=== PATIENT | female | born 1945 | race African-American/Black ===

== ENCOUNTER 2022-08-22 22:52 | Emergency (ER) | payer MEDICARE ==
[~2022-08-22] VITALS: Ht 149.9 cm; Wt 64.4 kg
[2022-08-22] MEDS ORDERED: CLONIDINE HCL 0.1 MG TAB PO ONE (23:30)
[2022-08-23] MEDS ORDERED: HYDRALAZINE HCL 20 MG/ML VIAL IV STA (00:05)
[2022-08-23] MEDS ORDERED: CLONIDINE HCL0.1 MG PO (00:27)
== END 2022-08-23 01:20 | disposition home or self-care (01) ==
LOC: FSED 22:56
DX: I16.0 Hypertensive urgency (principal); R51.9 Headache, unspecified; I10 Essential (primary) hypertension; N28.9 Disorder of kidney and ureter, unspecified
CPT/HCPCS: 70450; 93005; 99283; J0360

== ENCOUNTER 2022-09-02 08:03 | Inpatient (IN) | payer MEDICARE ==
[~2022-09-02] VITALS: Ht 149.9 cm; Wt 64.5 kg
[~2022-09-02 08:03] MED LIST: CLONIDINE HCL0.1 MG PO
[2022-09-02] MEDS ORDERED: NITROGLYCERIN 2% OINT 1 GM PKT TOP ONE (08:45)
[2022-09-02] MEDS ORDERED: HYDRALAZINE HCL 20 MG/ML VIAL IV ONE (08:45)
[2022-09-02] MEDS ORDERED: HYDRALAZINE HCL 20 MG/ML VIAL ONE (08:45)
[2022-09-02] MEDS ORDERED: ACETAMINOPHEN 325 MG TAB PO ONE (08:45)
[2022-09-02] MEDS ORDERED: NITROGLYCERIN 2% OINT 1 GM PKT ONE (08:46)
[2022-09-02] MEDS ORDERED: ACETAMINOPHEN 325 MG TAB ONE (08:46)
[2022-09-02] MEDS ORDERED: DIPHENHYDRAMINE HCL INJ 50 MG/ML VIAL IV PRN (09:45)
[2022-09-02] MEDS ORDERED: HYDRALAZINE HCL 20 MG/ML VIAL IV PRN (09:45)
[2022-09-02] MEDS ORDERED: ACETAMINOPHEN 325 MG TAB PO PRN ×2 (09:45→13:15)
[2022-09-02 12:32] VITALS: BP 126/90; O2SAT 98
[2022-09-02 12:33] VITALS: BP 126/90; O2SAT 98
[2022-09-02] MEDS ORDERED: LIDOCAINE 4% PATCH TP PRN (13:15)
[2022-09-02] MEDS ORDERED: DIPHENHYDRAMINE HCL 25 MG CAP PO PRN (13:15)
[2022-09-02] MEDS ORDERED: ONDANSETRON HCL INJ 2MG/ML 2ML 2 MG/ML VIAL IV PRN (13:15)
[2022-09-02] MEDS ORDERED: SIMETHICONE 80 MG CHEW PO PRN (13:15)
[2022-09-02] MEDS ORDERED: BENZONATATE 100 MG CAP PO PRN (13:15)
[2022-09-02] MEDS ORDERED: ALBUTEROL/IPRATROPIUM 3 ML NEB NEB PRN (13:15)
[2022-09-02] MEDS ORDERED: DOCUSATE SODIUM 100 MG CAP PO PRN (13:15)
[2022-09-02] MEDS ORDERED: POTASSIUM CHLORIDE 20 MEQ TAB CR PO PRN (13:15)
[2022-09-02] MEDS ORDERED: DEXTROSE 50% SYRINGE 50 ML IV PRN (13:15)
[2022-09-02] MEDS ORDERED: ASPIRIN 81 MG CHEW TAB PO ONE (13:15)
[2022-09-02] MEDS ORDERED: LEVOTHYROXINE50 MCG PO (14:06)
[2022-09-02] MEDS ORDERED: DORZOLAMIDE-TIM10 ML OU (14:06)
[2022-09-02] MEDS ORDERED: BRIMONIDINE TART5 ML OU (14:06)
[2022-09-02] MEDS ORDERED: FLUTICASONE PRO16 GM (14:06)
[2022-09-02] MEDS ORDERED: HYDRALAZINE HC100 MG PO (14:06)
[2022-09-02] MEDS ORDERED: METOPROLOL TAR100 MG PO (14:06)
[2022-09-02] MEDS ORDERED: ESOMEPRAZOLE MA40 MG PO (14:06)
[2022-09-02] MEDS ORDERED: GABAPENTIN100 MG PO (14:06)
[2022-09-02] MEDS ORDERED: KETOROLAC TROMET5 ML OU (14:06)
[2022-09-02] MEDS ORDERED: LATANOPROST2.5 ML OU (14:06)
[2022-09-02] MEDS ORDERED: ULTRAM 50MG50 MG PO (14:06)
[2022-09-02] MEDS ORDERED: LOSARTAN POTAS100 MG PO (14:06)
[2022-09-02 15:55] LABS: ANION GAP 12.7 mmol/L (8-16); CALCIUM 9.2 mg/dL (8.4-10.2); CREATININE, SERUM 1.34 mg/dL (0.57-1.11); POTASSIUM 3.7 mmol/L (3.5-5.1)
[2022-09-02 16:44] VITALS: BP 191/81; PULSE 54; RESP 17; TEMP 97.9; O2SAT 99
[2022-09-02] MEDS ORDERED: ISOSORBIDE MONONITRATE 30 MG TAB CR PO SCH (17:00)
[2022-09-02] MEDS ORDERED: VALSARTAN 160 MG TAB PO ONE ×2 (18:15→22:30)
[2022-09-02 20:00] VITALS: BP 144/88; PULSE 51; RESP 16; TEMP 97.2; O2SAT 100
[2022-09-02] MEDS ORDERED: MELATONIN 5 MG TABLET PO PRN (21:00)
[2022-09-02] MEDS ORDERED: SIMVASTATIN 40 MG TAB PO SCH (21:00)
[2022-09-02] MEDS ORDERED: ZOLPIDEM TARTRATE 5 MG TAB PO PRN (21:00)
[2022-09-02] MEDS: ATORVASTATIN 40 MG TAB PO SCH (22:42)
[2022-09-03] VITALS (8 sets, daily range): BP systolic 133–218; BP diastolic 71–98; PULSE 53–79; RESP 16–21; TEMP 97.1–98.3; O2SAT 96–100
[2022-09-03 05:05] LABS: BASOPHILS # (AUTO) 0.1 (0.0-0.1); BASOPHILS % 1.2 % (0.0-1.0); EOSINOPHILS # (AUTO) 0.2 (0.0-0.4); EOSINOPHILS % 3.7 % (0.0-6.0); HEMOGLOBIN 12.9 g/dL (12.0-16.0); LYMPHOCYTES # (AUTO) 2.3 (1.0-3.2); LYMPHOCYTES % 34.8 % (18.0-39.1); MEAN CORPUSCULAR HEMOGLOBIN 23.2 pg (28-32); MEAN CORPUSCULAR HGB CONC 30.7 g/dL (31-35); MEAN CORPUSCULAR VOLUME 75.5 fL (81-99); MONOCYTES # (AUTO) 0.7 (0.2-0.8); MONOCYTES % 10.8 % (4.4-11.3); NEUTROPHILS # (AUTO) 3.2 (2.1-6.9); NEUTROPHILS % 49.3 % (38.7-80.0); PLATELET COUNT 200 x10e3/uL (140-360); RED BLOOD COUNT 5.56 x10e6/uL (3.6-5.1); RED CELL DISTRIBUTION WIDTH 15.4 % (11.7-14.4)
[2022-09-03 05:33] LABS: ANION GAP 13.9 mmol/L (8-16); CALCIUM 9.4 mg/dL (8.4-10.2); CREATININE, SERUM 1.46 mg/dL (0.57-1.11); MAGNESIUM 2.1 MG/DL (1.3-2.1); POTASSIUM 3.9 mmol/L (3.5-5.1)
[2022-09-03] MEDS: HYDRALAZINE HCL 100 MG TABLET PO SCH ×3 (05:49→22:02)
[2022-09-03 05:53] LABS: THYROID STIMULATING HORMONE 1.504 uIU/mL (0.350-4.940)
[2022-09-03 06:10] LABS: CHOL/HDL RATIO 3.7 (3.0-3.6)
[2022-09-03] MEDS: ASPIRIN 81 MG ENTERIC COATED PO SCH (08:28)
[2022-09-03] MEDS: PANTOPRAZOLE SOD 40 MG TABEC PO SCH (08:28)
[2022-09-03] MEDS: VALSARTAN 160 MG TAB PO SCH (08:29)
[2022-09-03] MEDS ORDERED: LEVOTHYROXINE SODIUM 50 MCG TAB PO SCH (09:00)
[2022-09-03] MEDS ORDERED: NIFEDIPINE CR 30 MG TAB PO SCH (09:00)
[2022-09-03] MEDS ORDERED: ONDANSETRON HCL 4 MG ORAL DISINTEGRATING TAB PO PRN (09:30)
[2022-09-03] MEDS: HYDROCHLOROTHIAZIDE 25 MG TAB PO SCH (09:42)
[2022-09-03] MEDS: DORZOLAMIDE/TIMOLOL (OPTH SOL) 10 ML DRPETTE OP SCH ×2 (11:30→23:30)
[2022-09-03] MEDS: HYDRALAZINE HCL 20 MG/ML VIAL IV PRN (13:52)
[2022-09-03] MEDS ORDERED: CLONIDINE HCL 0.1 MG TAB PO SCH (17:00)
[2022-09-03] MEDS: CLONIDINE HCL 0.1 MG TAB PO SCH (17:15)
[2022-09-03] MEDS: GABAPENTIN 100 MG CAP PO SCH (22:02)
[2022-09-03] MEDS: ATORVASTATIN 40 MG TAB PO SCH (22:02)
[2022-09-03] MEDS: LATANOPROST(OPTH) 2.5 ML BTL OU SCH (22:06)
[2022-09-03] MEDS: BRIMONIDINE TARTRATE 0.15% OPTH DRPS 10ML BTL OP SCH (22:07)
[2022-09-04] VITALS (8 sets, daily range): BP systolic 130–198; BP diastolic 69–94; PULSE 66–86; RESP 17–21; TEMP 97.5–98.6; O2SAT 98–100
[2022-09-04] MEDS: HYDRALAZINE HCL 20 MG/ML VIAL IV PRN (04:36)
[2022-09-04] MEDS: LEVOTHYROXINE SODIUM 50 MCG TAB PO SCH (06:10)
[2022-09-04] MEDS: HYDRALAZINE HCL 100 MG TABLET PO SCH ×3 (06:10→21:15)
[2022-09-04] MEDS: HYDROCHLOROTHIAZIDE 25 MG TAB PO SCH (08:13)
[2022-09-04] MEDS: CLONIDINE HCL 0.1 MG TAB PO SCH ×3 (08:13→21:14)
[2022-09-04] MEDS: ASPIRIN 81 MG ENTERIC COATED PO SCH (08:14)
[2022-09-04] MEDS: VALSARTAN 160 MG TAB PO SCH (08:14)
[2022-09-04] MEDS: PANTOPRAZOLE SOD 40 MG TABEC PO SCH (08:14)
[2022-09-04] MEDS: HEPARIN SOD (PORCINE) 5,000 UNIT/ML VIAL SC SCH ×3 (08:15→21:17)
[2022-09-04] MEDS ORDERED: METOPROLOL SUCCINATE 25 MG TAB XL PO SCH (09:00)
[2022-09-04] MEDS: FLUTICASONE PROPIONATE NASAL SPRAY NS SCH (10:06)
[2022-09-04] MEDS: BRIMONIDINE TARTRATE 0.15% OPTH DRPS 10ML BTL OP SCH ×2 (10:07→21:51)
[2022-09-04] MEDS: DORZOLAMIDE/TIMOLOL (OPTH SOL) 10 ML DRPETTE OP SCH ×2 (11:30→21:51)
[2022-09-04] MEDS: GABAPENTIN 100 MG CAP PO SCH (21:14)
[2022-09-04] MEDS: ATORVASTATIN 40 MG TAB PO SCH (21:14)
[2022-09-04] MEDS: LATANOPROST(OPTH) 2.5 ML BTL OU SCH (21:50)
[2022-09-05 00:36] VITALS: BP 159/77; PULSE 56; RESP 16; TEMP 98.1; O2SAT 98
[2022-09-05 04:00] VITALS: BP 139/81; PULSE 54; RESP 17; TEMP 98.3; O2SAT 97
[2022-09-05] MEDS: LEVOTHYROXINE SODIUM 50 MCG TAB PO SCH (05:06)
[2022-09-05] MEDS: HYDRALAZINE HCL 100 MG TABLET PO SCH ×2 (05:06→12:50)
[2022-09-05 08:00] VITALS: BP 145/85; PULSE 71; RESP 18; TEMP 98.7; O2SAT 96
[2022-09-05 09:00] VITALS: BP 139/81; PULSE 54; RESP 17; TEMP 98.3; O2SAT 97
[2022-09-05] MEDS: HEPARIN SOD (PORCINE) 5,000 UNIT/ML VIAL SC SCH (09:10)
[2022-09-05] MEDS: BRIMONIDINE TARTRATE 0.15% OPTH DRPS 10ML BTL OP SCH (09:14)
[2022-09-05] MEDS: FLUTICASONE PROPIONATE NASAL SPRAY NS SCH (09:14)
[2022-09-05] MEDS: PANTOPRAZOLE SOD 40 MG TABEC PO SCH (09:14)
[2022-09-05] MEDS: ASPIRIN 81 MG ENTERIC COATED PO SCH (09:14)
[2022-09-05] MEDS: CLONIDINE HCL 0.1 MG TAB PO SCH (09:14)
[2022-09-05] MEDS: VALSARTAN 160 MG TAB PO SCH (09:14)
[2022-09-05] MEDS: HYDROCHLOROTHIAZIDE 25 MG TAB PO SCH (09:15)
[2022-09-05] MEDS ORDERED: ESIDRIX25 MG PO (10:54)
[2022-09-05] MEDS ORDERED: ATORVASTATIN CA40 MG PO (10:54)
[2022-09-05] MEDS ORDERED: DIOVAN160 MG PO (10:54)
[2022-09-05] MEDS ORDERED: ASPIRIN EC81 MG PO (10:55)
[2022-09-05 12:00] VITALS: BP 160/86; PULSE 66; RESP 18; TEMP 98.9; O2SAT 97
[2022-09-05] MEDS: DORZOLAMIDE/TIMOLOL (OPTH SOL) 10 ML DRPETTE OP SCH (12:34)
== END 2022-09-05 13:13 | disposition home or self-care (01) | DRG 305 ==
LOC: FSED 08:34 → ERHOLD 09:45 → MED/SURG 12:06 → OBSVTOIN 09-04 08:31
PROVIDERS: ADMIT Internal Medicine; ATTEND Internal Medicine
PROC: 4A10X4Z Monitoring of Central Nervous Electrical Activity, External Approach (ICD-10-PCS; principal; 2022-09-04)
DX: I16.0 Hypertensive urgency (principal); I67.4 Hypertensive encephalopathy; R47.81 Slurred speech; E11.22 Type 2 diabetes mellitus with diabetic chronic kidney disease; I12.9 Hypertensive chronic kidney disease with stage 1 through stage 4 chronic kidney disease, or unspecified chronic kidney disease; N18.9 Chronic kidney disease, unspecified; R00.1 Bradycardia, unspecified; F17.210 Nicotine dependence, cigarettes, uncomplicated; R07.9 Chest pain, unspecified; R29.810 Facial weakness; E78.00 Pure hypercholesterolemia, unspecified; Z20.822 Contact with and (suspected) exposure to COVID-19; Z88.0 Allergy status to penicillin; Z59.6 Low income; Z79.82 Long term (current) use of aspirin
CPT/HCPCS: 36415; 70450; 70551; 80048; 80053; 80061; 81003; 82553; 82607; 83036; 83735; 83880; 84443; 84484; 85025; 93005; 93306; 93880; 95819; 96374; 99284; G0378; J1644